=== PATIENT | male | born 1945 | race Caucasian/White ===

== ENCOUNTER → 2016-11-28 | Outpatient (CLI) | payer OTHER, BC ==
--- NOTE | ~2016-11-28 | EKG ---
[address] [address] ELECTROCARDIOGRAM REPORT Name: BAKARI THOMASNADIRA [facility] [id number] Admission: 11/28/16 Attend Phys: Pedro Pablo Chaves MD Discharge: Date of : 49 Report #: [id number] THIS REPORT FOR: //name// [facility] Test Date: 2016-11-28 Test Time: 12:33:21 Pat Name: BAKARI THOMAS Department: Room: Gender: Office Services Clerk: Corrine WILSON : 1945 Requested By: Pedro Pablo Chaves Order Number: [id number] MD: Measurements Intervals [place] Rate: 58 P: 30 DE: 171 QRS: 36 QRSD: 88 T: 34 QT: 412 QTc: 405 Interpretive Statements Sinus rhythm No previous ECG available for comparison [email or web address] By: 1233 1233 Diamond Fields MD /EPI
[2016-11-28 11:21] LABS: ABSOLUTE NEUTROPHILS 7.8 thou/uL (1.4-8.2); BASOPHILS 0.5 % (0.0-2.0); EOSINOPHILS 1.9 % (0.0-3.0); HEMATOCRIT 48.4 % (42.0-52.0); HEMOGLOBIN 16.5 gm/dL (14.0-18.0); LYMPHOCYTES 18.7 % (24.0-44.0); MCH 32.1 pg (26.0-34.0); MCHC 34.1 g/dL (28.0-37.0); MCV 94.2 fL (80.0-100.0); MONOCYTES 9.8 % (1.0-8.0); PLATELET COUNT 267 thou/uL (150-400); POLYS 69.1 % (36.0-66.0); RBC 5.15 mil/uL (4.50-6.00); WBC 11.3 thou/uL (4.0-11.0)
[2016-11-28 11:22] LABS: MANUAL DIFF NO
[2016-11-28 11:30] LABS: CALCIUM 9.8 mg/dL (8.5-10.1); CREATININE 0.9 mg/dL (0.7-1.3); POTASSIUM 4.4 mmol/L (3.5-5.1)
[2016-11-28 11:36] LABS: ALBUMIN 4.4 g/dL (3.4-5.0); TOTAL BILIRUBIN 0.7 mg/dL (<0.1-1.0); TOTAL PROTEIN 8.4 g/dL (6.4-8.2)
== END ==
LOC: LABMALL 10:55
PROVIDERS: Otolaryngology Plastic Surgery within the Head & Neck
DX: E04.1 Nontoxic single thyroid nodule (principal); K14.6 Glossodynia

== ENCOUNTER 2016-12-21 05:24 | Day surgery (SDC) | payer OTHER, BC ==
[~2016-12-21] VITALS: Ht 182.9 cm; Wt 82.6 kg
--- NOTE | ~2016-12-21 | S ---
[facility] [place] [address] SURGICAL PATH RPT PROCEDURE Name: JOSE LUIS NOLAN [id number] Admission: 12/21/16 Date of : 49 Discharge: 12/22/16 Report #: [id number] Path Case #: [id number] PATHOLOGY REPORT COLLECTION DATE: 12/21/2016 RECEIVED DATE: 12/21/2016 SUBMITTING PHYS: Dr. Pedro Pablo Chaves OTHER PHYS: Dr. Jules Solomon SPECIMEN(S) RECEIVED: A.Right thyroid lobe and mass B.Left thyroid lobe * * * * * * * * * * * * FINAL DIAGNOSIS: A. 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 - Negative for nuclear features of papillary thyroid carcinoma. - Negative for capsular invasion or lymphovascular space invasion. - Background thyroid parenchyma showing mild nodular hyperplasia. - Lymph node present within perithyroidal soft tissue showing reactive changes (0/1) B. Thyroid, left thyroid lobe, lobectomy: - Nodular hyperplasia. COMMENT: Co-review (slides A2, A4, and A8 only) by Dr. Lacey Crowe. (IUV:rlm; 12/23/2016) PATHOLOGIST: Sandra Huff M.D. REPORT ELECTRONICALLY SIGNED BY: Sandra Huff M.D. DATE/TIME: 12/23/2016 16:45 * * * * * * * * * * * * GROSS PATHOLOGY: A. The specimen is received fresh from the OR labeled with the patient's name, and "right thyroid lobe and mass" consists of a 19.0 gram unoriented thyroid lobectomy specimen. The specimen measures 5.3 x 1.5 cm. The capsule and the soft tissue are inked black. The specimen is serially sectioned and it shows a roughly circumscribed nodule with a thin capsule measuring 2.0 x 2.0 x 2.0 cm approximately. A agency sales representative section is submitted for frozen section as FSA1. An unfrozen portion of B nodule in a separate focus of this calcification was used for touch preparation only as TPA2. The frozen section remnant FSA1 is submitted for permanent sections [address] [address] SURGICAL PATH RPT PROCEDURE Name: [facility] Room #: DEP [facility].#: [id number] Admission: 12/21/16 Date of : 49 Discharge: 12/22/16 Report #: [id number] Path Case #: [id number] as A1. The touch preparation area is submitted for permanent sections only as A2. The entire nodule as well as the lobe are submitted for permanent sections only as A3-A9. (IUV:db; 12/21/2016) B. The specimen is received in formalin labeled "Jose Luis Nolan, left thyroid lobe". Received is a 5 g thyroid lobe measuring 4.3 x 2.5 x 1.0 cm in greatest dimensions. The capsule is intact and displays a slight amount of overlying adhesions. The specimen is inked black. Sectioning reveals normal red-brown thyroid parenchyma. Alternating sections are submitted in cassettes B1 through B5. (CAA; 12/22/2016) FROZEN SECTION DIAGNOSIS: (Sandra Huff M.D.) FSA1 and TPA2. Right thyroid lobe and mass, lobectomy: - Calcified and fibrotic nodule measuring 2.0 cm. - TPA2 shows mixed architecture with no definite nuclear features of papillary carcinoma. - FSA1 shows mixed architecture, calcification as well as a few inclusions, cannot exclude a neoplasm. These findings were discussed with Dr. Pedro Pablo Chaves in OR1 at [facility] and a written report is placed in the patient's chart. Testing performed by [facility] at [place] [address], [place] [address] CLINICAL HISTORY: History of thyroid nodule, status post fine needle aspiration. INITIAL CPT CODE(S): A; 13170, 08902, 07453, 03765 B; 36463 Professional services performed by [facility] at [place] [address], [place] [address] Technical services performed by [facility] at [address] [place] [address], [address] [address]. [facility] [address] [place] [address] PHONE: [phone] DIRECTOR: Topher Byers M.D. [address] [address] SURGICAL PATH RPT PROCEDURE Name: NOLANJOSE LUIS Room #: DEP [facility]#: [id number] Admission: 12/21/16 Date of : 49 Discharge: 12/22/16 Report #: [id number] Path Case #: [id number] * * * END OF REPORT * * *
--- NOTE | ~2016-12-21 | O ---
[facility] [place] [address] OPERATIVE REPORT Name: BAKARI THOMAS Room #: 437-P [facility]#: [id number] Admission: 12/21/16 Attend Phys: Pedro Pablo Chaves MD Discharge: Date of : 49 Report #: [id number] THIS REPORT FOR: //name// CC: Pedro Pablo Solomon DO PREOPERATIVE DIAGNOSES: 1. Thyroid mass, right lobe. 2. Multinodular goiter. POSTOPERATIVE DIAGNOSES: 1. Thyroid mass, right lobe. 2. Multinodular goiter. OPERATION PERFORMED: 1. Total thyroidectomy. 2. Nerve integrity monitor times 2 hours. INDICATIONS: The patient is a 71-year-old gentleman with a multinodular goiter. We have been following this for a couple of years. Previous biopsy had been done in September 2013 and read out as a benign biopsy. This was consistent with a micro and macrofollicular adenoma. On serial ultrasounds done yearly, this has stayed relatively stable, but this year changed with an increase in size and also microcalcifications. At that point, recommendations were made for excision. DESCRIPTION OF PROCEDURE: The patient was brought to the operating room and placed supine on the operating table. After adequate general anesthesia was achieved via endotracheal intubation with a nerve integrity monitoring endotracheal tube, shoulder was placed and the neck was extended. The planned incision was marked out just above the manubrium in a relaxed skin tension line and injected with 1% Xylocaine with 1:100,000 epinephrine. As a separate part of the procedure, needle electrodes were placed in the soft tissue overlying the sternum and contralateral shoulder. Electrode resistance and impedance was measured and found to be acceptable. Threshold and stimulus intensity parameters were set and the patient was monitored for the entirety of the case of approximately 2 hours in order to locate and protect the recurrent laryngeal nerve. He was then prepped and draped in a sterile fashion. The procedure began with incision through skin, subcutaneous tissue and platysma. Subplatysmal flaps were elevated superiorly and inferiorly. Dissection was made down to the strap muscles. These were divided vertically in the midline and retracted laterally. Dissection was then made down to the [facility] [address] [place] [address] OPERATIVE REPORT Name: BAKARI THOMAS [place] Room #: 437-P REG [facility].#: [id number] Admission: 12/21/16 Attend Phys: Pedro Pablo Chaves MD Discharge: Date of : 49 Report #: [id number] thyroid gland. First, the left lobe was dissected so that it could be examined and palpated thoroughly. Then, attention was turned to the known mass in the right thyroid. This was again dissected, this was a large mass mostly on the inferior side of the thyroid, this was dissected free. Beginning superiorly on the right, the superior vessels were sequentially identified, clamped between Ligaclips and divided. The isthmus was taken down off the thyroid with harmonic jay jay. The inferior vessels then were sequentially identified, clamped between Ligaclips and divided. Middle thyroid vein was taken down between Ligaclips and the thyroid and mass were delivered up into the field. Dissection in the tracheoesophageal groove revealed the recurrent nerve in its usual anatomic position. This was tracked superiorly to the cricothyroid joint and confirmed with probe stimuli to positively identify the nerve. The inferior parathyroid on this side was found running with the inferior thyroid artery and preserved. The superior parathyroid was attached to the capsule of the thyroid, it was dissected and its blood supply preserved. Garcia's ligament was taken down sharply after the nerve was positively identified . The lobe was then delivered off the field as specimen to pathology for frozen section. This again showed micro and macrofollicular nodules. Final diagnosis was deferred to permanent section. Attention was then turned to the left side. Again beginning superiorly, the superior vessels were sequentially identified, clamped between Ligaclips and divided. The middle thyroid vein was taken down between Ligaclips. The inferior vessels were sequentially identified, clamped between Ligaclips and divided. The lobe was delivered up on to the trachea. Dissection in the tracheoesophageal groove again revealed the recurrent nerve in its usual anatomic position. This was tracked superiorly to the cricothyroid joint. Again on this side, the inferior parathyroid was found running with the inferior thyroid artery and preserved. The superior parathyroid was attached to the capsule, dissected free and kept pedicled on its blood supply. Garcia's ligament was taken down sharply keeping the nerve in direct vision and then this lobe was delivered off the field as specimen in formalin. At this point, palpation was done in level 6. Complete examination was made. There were no abnormal or suspicious appearing lymph nodes present. Hemostasis was assured with bipolar cautery and clip ligature. The wound was irrigated copiously with saline. At the end of the procedure, both recurrent nerves were stimulated with probe stimuli and found to be intact. The strap muscles were then closed in layers with interrupted 3-0 Vicryl. Prior to closure, a 10-[place] [employer] drain was placed through a separate stab incision, curled into the wound and connected to bulb suction. It was sutured in place with 2-0 silk. The platysmal layer was then closed with interrupted 3-0 Vicryl, 4-0 Vicryl deep dermal sutures were then placed and a 5-0 running subcuticular Prolene on skin. Mastisol and Steri-Strips were applied followed by an OpSite for dressing. The patient was then returned to anesthesia, awake without difficulty, returned to recovery in good condition. Sponge and needle counts [facility] [address] [place] [address] OPERATIVE REPORT Name: BAKARI THOMAS [place] Room #: 437-P [facility]..#: [id number] Admission: 12/21/16 Attend Phys: Pedro Pablo Chaves MD Discharge: Date of : 49 Report #: [id number] were correct. There were no complications and the blood loss was about 20 mL. He will be watched until awake and stable, presuming he does well and discharged to home with plans to follow up me in 1 week for suture removal, 48 hours for drain removal. Written and verbal discharge instructions and emergency precautions have been given to his family. DISCHARGE MEDICATIONS: Will include clindamycin 300 mg 1 t.i.d. for 10 days, hydrocodone/acetaminophen 7.5/325 one to two q. 4-6 hours p.r.n., Phenergan suppository 25 mg 1 per rectum q. 4-6 hours p.r.n., Synthroid 112 mcg every day, Tums 500 mg 2 b.i.d. for 10 days. He has been instructed on light activity and soft diets. <ELECTRONICALLY SIGNED> By: Pedro Pablo Chaves MD 12/21/16 1814 1428 1519 Pedro Pablo Chaves MD /patito
[~2016-12-21 05:24] MED LIST: CIALIS5 MG PO; OXYCODONE HCL10 MG PO; SIMVASTATIN40 MG PO; TIMOLOL MA0.25 %/5 M OPHTHALMIC
[2016-12-21 13:28] VITALS: BP 122/81
[2016-12-21] MEDS ORDERED: CLEOCIN HCL150 MG PO (14:36)
[2016-12-21] MEDS ORDERED: PROMS25 WY RECTAL (14:36)
[2016-12-21] MEDS ORDERED: TUMS CHEWA500 MG/11 PO (14:37)
[2016-12-21] MEDS ORDERED: NORCO 7.5-3251 EACH PO (14:37)
[2016-12-21] MEDS ORDERED: LEVOTHYROXIN0.112 M1 PO (14:38)
[2016-12-21 15:57] LABS: ALBUMIN 3.5 g/dL (3.4-5.0); MAGNESIUM 1.8 mg/dL (1.8-2.4)
[2016-12-21 19:27] VITALS: BP 141/72
[2016-12-22 04:59] VITALS: BP 117/68
[2016-12-22 08:00] VITALS: BP 121/73
[2016-12-22 11:53] VITALS: BP 121/73
== END 2016-12-22 12:55 | disposition home or self-care (01) ==
LOC: TBA 05:24 → OR 05:24 → TBA 05:30 → OR 11:23 → 4S 16:10 → OR 12-22 12:55
PROVIDERS: Otolaryngology Plastic Surgery within the Head & Neck
DX: D34 Benign neoplasm of thyroid gland (principal); E78.00 Pure hypercholesterolemia, unspecified; F17.210 Nicotine dependence, cigarettes, uncomplicated; Z88.0 Allergy status to penicillin; Z98.890 Other specified postprocedural states; Z79.899 Other long term (current) drug therapy
CPT/HCPCS: 50010; 50101; 50331; 50386; 50417; 52190; 52220; 52225; 52287; 56524; 56526; 56528; 56668; 56760; 57006; 62110; 62900; 70005